=== PATIENT | female | born 1955 | race African-American/Black ===

== ENCOUNTER 2017-05-23 14:11 | Emergency (ER) | payer OTHER ==
[~2017-05-23] VITALS: Ht 157.5 cm; Wt 92.1 kg
[~2017-05-23 14:11] MED LIST: ATORVASTATIN CA20 MG PO; BACLOFEN10 MG PO; GABAPENTIN300 MG PO; HYDROCHLOROTHIA25 MG PO; LOSARTAN POTAS100 MG PO; ULTRAM 50MG50 MG PO; VIT D PO
[2017-05-23 14:51] LABS: BILIRUBIN,URINE NEGATIVE (NEGATIVE); CLARITY,URINE HAZY (CLEAR); COLOR,URINE YELLOW (YELLOW); KETONES,URINE NEGATIVE (NEGATIVE); LEUKOCYTE ESTERASE ,URINE NEGATIVE (NEGATIVE); NITRITE,URINE NEGATIVE (NEGATIVE); PROTEIN,URINE DIPSTICK NEGATIVE (NEGATIVE); URINE UROBILINOGEN 0.2 mg/dL (0.2 - 1)
[2017-05-23 15:03] LABS: WBC,URINE (MAN) 0-5 /HPF (0-5)
[2017-05-23 15:04] LABS: BACTERIA,URINE RARE /HPF; EPITHELIAL CELLS,URINE RARE /LPF; RBC,URINE 0-5 /HPF (0-5); YEAST,URINE RARE
--- NOTE | 2017-05-23 15:32 | Diagnostic Imaging Report ---
PROCEDURE:ABDOMEN ACUTE SERIES W/PA CXR COMPARISON:Patients [facility], DX, CHEST 2 VIEWS, 10/03/2016, 16:30. INDICATIONS:RULE OUT SMALL BOWEL OBSTRUCTION FINDINGS: CHEST: No acute thoracic abnormality. The lungs are clear. The cardio mediastinal silhouette is within normal limits. No free air beneath the diaphragm. BOWEL PATTERN: No bowel dilatation to suggest obstruction. SOFT TISSUES: Small ossifications projected on the right hemipelvis is suggestive of phleboliths.. No pneumoperitoneum. BONES: No acute abnormality CONCLUSION: 1. No acute thoracic abnormality. 2. Nonobstructive bowel gas pattern. Davy Correa M.D. Dictated by: Davy Correa M.D. on 05/23/2017 at 15:33 Electronically approved by: Davy Correa M.D. on 05/23/2017 at 15:33
[2017-05-23 16:09] VITALS: BP 126/80
== END 2017-05-23 16:20 | disposition home or self-care (01) ==
LOC: ER 14:11
DX: R19.7 Diarrhea, unspecified (principal); I10 Essential (primary) hypertension; E78.5 Hyperlipidemia, unspecified; M06.9 Rheumatoid arthritis, unspecified
CPT/HCPCS: 74022; 81001; 99283

== ENCOUNTER 2019-02-16 04:36 | Emergency (ER) | payer OTHER ==
[~2019-02-16] VITALS: Ht 157.5 cm; Wt 92.1 kg
--- OUTSIDE RECORDS SUMMARY | 2019-02-16 04:39 | XMS REPORT ---
Author Author [facility] Address Unknown Phone Unavailable Care Team Providers Care Casing Operator Name Role Phone Chidi MOREIRA Unavailable Unavailable Problems This patient has no known problems. Allergies, Adverse Reactions, Alerts This patient has no known allergies or adverse reactions. Medications This patient has no known medications. Results Test Description Test Time Test Comments Text Results Atomic Results Result Comments SCR MAMM BILATERAL GABRIELLA CAD DIGITAL 2018-05-27 09:21:56 - SCR MAMM BILATERAL GABRIELLA CAD DIGITALBILATERAL DIGITAL SCREENING MAMMOGRAM 3D/2D WITH CAD: 05/23/2018CLINICAL: Asymptomatic. Digital breast tomosynthesis was performed in addition to routine CC and MLO views. Current mammographic images were evaluated by either a [employer] M-Vu or a [employer] ImageChecker CAD (computer aided detection system). Comparison is made to exam dated 08/18/2014 mammogram - [facility] trudy [facility]. There are scattered fibroglandular tissues in both breasts. No suspicious mass, architectural distortion, malignant type calcification, or lymph node abnormality detected. Breast architecture is stable compared to prior exams.IMPRESSION: NEGATIVEThere is no mammographic evidence of malignancy. Resume annual screening mammography in one year. Sangeeta holguin/penrad:05/27/2018 09:21:56 Water Main Inspector: Natasha GREENBERG, [facility]-FWletter sent: BIRADS 1-2 Normal Mammogram BI-RADS: 1 Negative ABDOMEN ACUTE SERIES W/PA CXR [place] [address] Patient Name: CHRISTOPHER VINSON MR #: [id number] : 1955 Age/Sex: 61/F Req #: [id number] Adm Physician: Ordered by: SEUN MOREIRA MD Report #: [id number] Location: ER Room/Bed: Procedure: [id number] DX/ABDOMEN ACUTE SERIES W/PA CXR Exam Date: 05/23/17 Exam Time: 1500 REPORT STATUS: Signed PROCEDURE: ABDOMEN ACUTE SERIES W/PA CXR COMPARISON: [facility], DX, CHEST 2 VIEWS, 10/03/2016, 16:30. INDICATIONS: RULE OUT SMALL BOWEL OBSTRUCTION FINDINGS: CHEST: No acute thoracic abnormality. The lungs are clear. The cardio mediastinal silhouette is within normal limits. No free air beneath the diaphragm. BOWEL PATTERN: No bowel dilatation to suggest obstruction. SOFT TISSUES: Small ossifications projected on the right hemipelvis is suggestive of phleboliths.. No pneumoperitoneum. BONES: No acute abnormality CONCLUSION: 1. No acute thoracic abnormality. 2. Nonobstructive bowel gas pattern. Davy Anderson M.D. Dictated by: Davy Anderson M.D. on 05/23/2017 at 15:33 Electronically approved by: Davy Anderson M.D. on 05/23/2017 at 15:33 Dictated By: ORLANDO ANDERSON MD, MD [id number] Transcribed By: EMERSON on 05/23/17 1533 COPY TO: SEUN MOREIRA MD
[2019-02-16] MEDS ORDERED: ASPIRIN 81 MG CHEW TAB PO ONE (05:00)
--- NOTE | 2019-02-16 05:38 | Diagnostic Imaging Report ---
EXAMINATION: CHEST SINGLE (PORTABLE) INDICATION: Chest, shoulder pain. COMPARISON: None FINDINGS: TUBES and LINES: None. LUNGS: Lungs are well inflated. Mild patchy bibasilar opacities, likely atelectasis. There is no evidence of pneumonia or pulmonary edema. PLEURA: No pleural effusion or pneumothorax. HEART AND MEDIASTINUM: The cardiomediastinal silhouette is unremarkable. BONES AND SOFT TISSUES: No acute osseous abnormality. Soft tissues are unremarkable. UPPER ABDOMEN: No free air under the diaphragm. IMPRESSION: No acute radiographic abnormality Signed by: Dr. Nilo Siddiqui MD on 02/16/2019 5:35 AM
[2019-02-16 05:48] LABS: BASOPHILS % 0.3 % (0.0-1.0); EOSINOPHILS # (AUTO) 0.1 (0.0-0.4); EOSINOPHILS % 0.9 % (0.0-6.0); HEMATOCRIT 39.3 % (34.2-44.1); HEMOGLOBIN 12.5 g/dL (12.0-16.0); LYMPHOCYTES # (AUTO) 2.3 (1.0-3.2); MEAN CORPUSCULAR HEMOGLOBIN 32.7 pg (28-32); MEAN CORPUSCULAR HGB CONC 31.8 g/dL (31-35); MEAN CORPUSCULAR VOLUME 102.9 fL (81-99); MONOCYTES # (AUTO) 0.9 (0.2-0.8); MONOCYTES % 8.2 % (4.4-11.3); NEUTROPHILS # (AUTO) 7.6 (2.1-6.9); NEUTROPHILS % 69.3 % (38.7-80.0); PLATELET COUNT 267 x10e3/uL (140-360); RED BLOOD COUNT 3.82 x10e6/uL (3.6-5.1); RED CELL DISTRIBUTION WIDTH 13.9 % (11.7-14.4)
[2019-02-16 06:04] LABS: ALANINE AMINOTRANSFERASE 23 IU/L (0-55); ALBUMIN 3.3 g/dL (3.5-5.0); ALBUMIN/GLOBULIN RATIO 0.8 (0.8-2.0); ALKALINE PHOSPHATASE 100 IU/L (40-150); ANION GAP 15.4 mmol/L (8-16); BLOOD UREA NITROGEN 11 mg/dL (7-26); BUN/CREATININE RATIO 15 (6-25); CALCIUM 9.5 mg/dL (8.4-10.2); CARBON DIOXIDE 24 mmol/L (22-29); CHLORIDE 104 mmol/L (98-107); CREATINE KINASE 121 IU/L (29-168); CREATININE, SERUM 0.75 mg/dL (0.57-1.11); EST GLOMERULAR FILTRATION RATE > 60 ML/MIN (60-); GLUCOSE 115 mg/dL (74-118); POTASSIUM 3.4 mmol/L (3.5-5.1); SODIUM 140 mmol/L (136-145)
[2019-02-16 06:28] VITALS: BP 122/76
== END 2019-02-16 06:40 | disposition home or self-care (01) ==
LOC: ER 04:36
DX: R07.89 Other chest pain (principal); M25.512 Pain in left shoulder; M79.7 Fibromyalgia
CPT/HCPCS: 36415; 71045; 80053; 82550; 82553; 84484; 85025; 93005; 99283